=== PATIENT | male | born 1985 | race Caucasian/White ===

== ENCOUNTER 2016-09-22 02:01 | Emergency (ER) | payer SELFPAY ==
[~2016-09-22] VITALS: Ht 188 cm; Wt 94.3 kg
[~2016-09-22 02:01] MED LIST: IBUPROFEN800 MG PO
[2016-09-22] MEDS ORDERED: ULTRAM50 MG PO (04:36)
[2016-09-22] MEDS ORDERED: PEN-VEE K,VEET500 MG PO (04:36)
[2016-09-22 04:57] VITALS: BP 125/60
== END 2016-09-22 04:57 | disposition home or self-care (01) ==
LOC: EME 02:01 → EXP 02:01
PROC: 3E0T3BZ Introduction of Anesthetic Agent into Peripheral Nerves and Plexi, Percutaneous Approach (ICD-10-PCS; principal; 2016-09-22)
DX: K08.89 Other specified disorders of teeth and supporting structures (principal); K03.81 Cracked tooth; F17.200 Nicotine dependence, unspecified, uncomplicated
CPT/HCPCS: 99281; 99283